=== PATIENT | female | born 1995 | race Two or more races ===

== ENCOUNTER 2023-01-27 14:32 | Inpatient (IN) | payer OTHER ==
[~2023-01-27] VITALS: Ht 157.5 cm; Wt 60.4 kg
[2023-01-27] MEDS ORDERED: ACETAMINOPHEN 325 MG TAB PO PRN (18:30)
[2023-01-27] MEDS ORDERED: MEDR150I23 IM (18:50)
[2023-01-27 18:54] VITALS: O2SAT 97
[2023-01-27] MEDS ORDERED: LORazepam 2MG/ML-1ML VIAL IV PRN (19:00)
[2023-01-27 19:10] LABS: Basophils # (auto) 0 10 ^3/uL (0-0.2); Basophils % (auto) 0.4 % (0.0-2.0); Eosinophils # (auto) 0.1 10 ^3/uL (0-0.8); Eosinophils % (auto) 0.7 % (0.0-7.0); Hematocrit 42.8 % (36.0-46.0); Lymphocytes # (auto) 2.9 10 ^3/uL (0.4-5.4); Lymphocytes % (auto) 32.8 % (10.0-50.0); Mean Corpuscular Hgb Conc. 32.8 g/dL (32.0-36.0); Mean Corpuscular Volume 88.5 fL (80.0-100.0); Monocytes # (auto) 0.4 10 ^3/uL (0-1.3); Neutrophils # (auto) 5.5 10 ^3/uL (1.6-8.6); Neutrophils % (auto) 62.1 % (37.0-80.0); Red Blood Cells 4.83 10^6/uL (4.0-5.20); White Blood Cell 8.9 10^3/uL (4.4-10.8)
[2023-01-27 19:26] LABS: INR 1.02 (0.9-1.15); Prothrombin Time 10.7 sec (9.3-11.8)
[2023-01-27 19:32] LABS: Alanine Aminotransferase 35 U/L (7-40); Albumin 4.7 g/dL (3.2-4.8); Alkaline Phosphatase 61 U/L (46-116); Anion Gap 9 (5-15); Aspartate Aminotransferase 12 U/L (13-40); BUN/Creatinine Ratio 13.6 (10.0-20.0); Bilirubin, Total 0.6 mg/dL (0.2-1.0); Blood Urea Nitrogen 8 mg/dL (9-23); Calcium 9.3 mg/dL (8.5-10.1); Carbon Dioxide 22 mmol/L (20-30); Chloride 108 mmol/L (98-107); Glucose 88 mg/dL (74-106); Potassium 3.8 mmol/L (3.5-5.1); Sodium 139 mmol/L (136-145); Total Protein 7.6 g/dL (5.7-8.2)
[2023-01-27 21:09] LABS: Urine Bacteria NONE SEEN /hpf (None Seen); Urine Blood 3+ /uL (Negative); Urine Clarity HAZY (Clear); Urine Color Yellow (Yellow); Urine Mucus FEW (None Seen); Urine Protein, UAD TRACE (Negative); Urine Specific Gravity 1.029 (1.001-1.035); Urine Urobilinogen Normal (Negative); Urine WBC 18 /hpf (0 - 5)
[2023-01-27 22:00] VITALS: BP 110/68; PULSE 72; RESP 16; TEMP 99; O2SAT 94
[2023-01-28] MEDS: SODIUM CHLORIDE 0.9% 1,000 ML IV SCH ×3 (04:13→20:45)
[2023-01-28 05:00] VITALS: BP 99/64; PULSE 78; RESP 18; TEMP 98.6; O2SAT 96
[2023-01-28 05:55] LABS: Basophils # (auto) 0.1 10 ^3/uL (0-0.2); Basophils % (auto) 0.7 % (0.0-2.0); Eosinophils # (auto) 0.1 10 ^3/uL (0-0.8); Eosinophils % (auto) 1.6 % (0.0-7.0); Hematocrit 39.8 % (36.0-46.0); Hemoglobin 13.3 g/dL (12.2-16.2); Lymphocytes # (auto) 3.7 10 ^3/uL (0.4-5.4); Mean Corpuscular Hemoglobin 29.4 pg (28.0-32.0); Mean Corpuscular Hgb Conc. 33.5 g/dL (32.0-36.0); Mean Corpuscular Volume 87.9 fL (80.0-100.0); Monocytes # (auto) 0.5 10 ^3/uL (0-1.3); Monocytes % (auto) 5.5 % (0.0-12.0); Neutrophils # (auto) 4.4 10 ^3/uL (1.6-8.6); Neutrophils % (auto) 50.2 % (37.0-80.0); Nucleated Red Blood Cells % 0.1 %; Red Blood Cells 4.53 10^6/uL (4.0-5.20); Red Cell Distribution Width 13.7 % (11.8-14.3); White Blood Cell 8.8 10^3/uL (4.4-10.8)
[2023-01-28 06:29] LABS: Alanine Aminotransferase 27 U/L (7-40); Alkaline Phosphatase 57 U/L (46-116); Anion Gap 9 (5-15); Calcium 8.8 mg/dL (8.7-10.4); Carbon Dioxide 22 mmol/L (20-30); Chloride 107 mmol/L (98-107); Glucose 86 mg/dL (74-106); Potassium 3.4 mmol/L (3.5-5.1); Sodium 138 mmol/L (136-145)
[2023-01-28 06:30] LABS: Blood Urea Nitrogen 6 mg/dL (9-23)
[2023-01-28 06:31] LABS: Aspartate Aminotransferase < 8 U/L (13-40)
[2023-01-28 06:32] LABS: Bilirubin, Total 0.8 mg/dL (0.2-1.0); Total Protein 6.7 g/dL (5.7-8.2)
[2023-01-28 08:00] VITALS: PULSE 67; RESP 18; O2SAT 97
[2023-01-28 08:41] VITALS: BP 114/69; PULSE 67; RESP 18; TEMP 98.7; O2SAT 97
[2023-01-28] MEDS ORDERED: POTASSIUM CHL 20 Meq TABLET PO ONE (09:00)
[2023-01-28] MEDS: cefTRIAXone 1GM/50ML D5W 50 ML IV SCH (09:35)
[2023-01-28 09:51] LABS: Erythrocyte Sedimentation Rate 5 mm/hr (0-20)
[2023-01-28 11:28] LABS: Folate (Folic Acid) 11.52 ng/mL (>5.38)
[2023-01-28] MEDS ORDERED: CYANOCOBALAMIN (B-12) 1000 MCG/1 ML VIAL IM ONE (12:15)
[2023-01-28] MEDS ORDERED: ERGOCALCIFEROL 50,000 UNIT(1.25MG) CAP PO SCH (12:15)
[2023-01-28 14:21] VITALS: BP 109/58; PULSE 83; RESP 18; TEMP 98.6; O2SAT 97
[2023-01-28] MEDS ORDERED: GADOTERATE MEG 10 MMOL/20ml INJ (0.5MMOL/ml) IV ONE (16:32)
[2023-01-28 16:40] VITALS: BP 130/79; PULSE 91; RESP 20; TEMP 98; O2SAT 96
[2023-01-28] MEDS ORDERED: LORazepam 2MG/ML-1ML VIAL IV PRN (19:00)
[2023-01-28] MEDS: methylPREDNISolone SOD SUCC 1,000 MG in SODIUM CHL 0.9% 250 ML IV SCH (20:42)
[2023-01-28 22:00] VITALS: BP 109/63; PULSE 76; RESP 18; TEMP 98.4; O2SAT 95
[2023-01-29 05:00] VITALS: BP 103/61; PULSE 70; RESP 18; TEMP 97.7; O2SAT 97
[2023-01-29 06:04] LABS: Basophils # (auto) 0 10 ^3/uL (0-0.2); Basophils % (auto) 0.1 % (0.0-2.0); Eosinophils # (auto) 0 10 ^3/uL (0-0.8); Hematocrit 43.5 % (36.0-46.0); Hemoglobin 14.3 g/dL (12.2-16.2); Lymphocytes % (auto) 12.4 % (10.0-50.0); Mean Corpuscular Hemoglobin 29.1 pg (28.0-32.0); Mean Corpuscular Hgb Conc. 32.8 g/dL (32.0-36.0); Mean Corpuscular Volume 88.5 fL (80.0-100.0); Monocytes # (auto) 0 10 ^3/uL (0-1.3); Monocytes % (auto) 0.5 % (0.0-12.0); Neutrophils # (auto) 7.1 10 ^3/uL (1.6-8.6); Red Blood Cells 4.91 10^6/uL (4.0-5.20); Red Cell Distribution Width 13.7 % (11.8-14.3); White Blood Cell 8.2 10^3/uL (4.4-10.8)
[2023-01-29 06:25] LABS: Anion Gap 10 (5-15); Carbon Dioxide 21 mmol/L (20-30); Chloride 108 mmol/L (98-107); Sodium 139 mmol/L (136-145)
[2023-01-29 06:31] LABS: Glucose 141 mg/dL (74-106)
[2023-01-29 06:32] LABS: BUN/Creatinine Ratio 14.7 (10.0-20.0); Blood Urea Nitrogen 10 mg/dL (9-23); Magnesium 2.1 mg/dL (1.6-2.6)
[2023-01-29 06:34] LABS: LDL Cholesterol 79 mg/dL (< 100); Phosphorus 3.7 mg/dL (2.4-5.1); Triglycerides 44 mg/dL (< 150)
[2023-01-29 06:35] LABS: Cholesterol 147 mg/dL (< 200); HDL Cholesterol 54 mg/dL (40-59)
[2023-01-29 08:00] VITALS: PULSE 68; RESP 17; O2SAT 98
[2023-01-29 09:00] VITALS: BP 108/69; PULSE 76; RESP 17; TEMP 98.3; O2SAT 96
[2023-01-29] MEDS: cefTRIAXone 1GM/50ML D5W 50 ML IV SCH (11:00)
[2023-01-29] MEDS: CYANOCOBALAMIN 500 MCG TAB PO SCH (11:00)
[2023-01-29] MEDS: SODIUM CHLORIDE 0.9% 1,000 ML IV SCH ×2 (11:00→12:13)
[2023-01-29] MEDS: FAMOTIDINE 20 MG TAB PO SCH (11:00)
[2023-01-29 13:00] VITALS: BP 103/54; PULSE 80; RESP 17; TEMP 98.5; O2SAT 94
[2023-01-29 16:44] VITALS: BP 121/75; PULSE 88; RESP 16; TEMP 98.3; O2SAT 97
[2023-01-29] MEDS: methylPREDNISolone SOD SUCC 1,000 MG in SODIUM CHL 0.9% 250 ML IV SCH (20:24)
[2023-01-29 22:00] VITALS: BP_SYST 119; PULSE 72; RESP 16; TEMP 98.4; O2SAT 97
[2023-01-29] MEDS ORDERED: TEMAZEPAM 15 MG CAP PO ONE (23:00)
[2023-01-30] VITALS (7 sets, daily range): BP systolic 108–122; BP diastolic 64–74; PULSE 68–79; RESP 16–20; TEMP 97.9–98.1; O2SAT 93–100
[2023-01-30] MEDS: SODIUM CHLORIDE 0.9% 1,000 ML IV SCH (02:26)
[2023-01-30 06:03] LABS: Basophils # (auto) 0 10 ^3/uL (0-0.2); Basophils % (auto) 0.1 % (0.0-2.0); Eosinophils # (auto) 0 10 ^3/uL (0-0.8); Hematocrit 40.5 % (36.0-46.0); Hemoglobin 13.2 g/dL (12.2-16.2); Lymphocytes # (auto) 1.1 10 ^3/uL (0.4-5.4); Lymphocytes % (auto) 8.9 % (10.0-50.0); Mean Corpuscular Hemoglobin 29.2 pg (28.0-32.0); Mean Corpuscular Hgb Conc. 32.6 g/dL (32.0-36.0); Mean Corpuscular Volume 89.5 fL (80.0-100.0); Monocytes # (auto) 0.1 10 ^3/uL (0-1.3); Monocytes % (auto) 0.5 % (0.0-12.0); Neutrophils # (auto) 11.2 10 ^3/uL (1.6-8.6); Neutrophils % (auto) 90.5 % (37.0-80.0); Red Blood Cells 4.52 10^6/uL (4.0-5.20); White Blood Cell 12.4 10^3/uL (4.4-10.8)
[2023-01-30 06:04] LABS: Alanine Aminotransferase 20 U/L (7-40); Alkaline Phosphatase 54 U/L (46-116); Anion Gap 9 (5-15); Aspartate Aminotransferase < 8 U/L (13-40); BUN/Creatinine Ratio 11.3 (10.0-20.0); Bilirubin, Total 0.4 mg/dL (0.2-1.0); Blood Urea Nitrogen 7 mg/dL (9-23); Calcium 8.8 mg/dL (8.7-10.4); Carbon Dioxide 21 mmol/L (20-30); Chloride 111 mmol/L (98-107); Glucose 163 mg/dL (74-106); Magnesium 1.9 mg/dL (1.6-2.6); Potassium 3.9 mmol/L (3.5-5.1); Sodium 141 mmol/L (136-145); Total Protein 6.7 g/dL (5.7-8.2)
[2023-01-30] MEDS: CYANOCOBALAMIN 500 MCG TAB PO SCH (09:02)
[2023-01-30] MEDS: cefTRIAXone 1GM/50ML D5W 50 ML IV SCH (09:02)
[2023-01-30] MEDS: FAMOTIDINE 20 MG TAB PO SCH (09:02)
[2023-01-30] MEDS: methylPREDNISolone SOD SUCC 1,000 MG in SODIUM CHL 0.9% 250 ML IV SCH (22:01)
[2023-01-31] MEDS: SODIUM CHLORIDE 0.9% 1,000 ML IV SCH (02:30)
[2023-01-31 05:00] VITALS: BP 107/63; PULSE 68; RESP 18; TEMP 98.2; O2SAT 100
[2023-01-31 06:24] LABS: Chloride 108 mmol/L (98-107); Potassium 3.9 mmol/L (3.5-5.1); Sodium 140 mmol/L (136-145)
[2023-01-31 06:25] LABS: Anion Gap 9 (5-15); Carbon Dioxide 23 mmol/L (20-30)
[2023-01-31 06:26] LABS: Calcium 8.9 mg/dL (8.7-10.4)
[2023-01-31 06:30] LABS: Glucose 151 mg/dL (74-106)
[2023-01-31 06:31] LABS: BUN/Creatinine Ratio 8.1 (10.0-20.0); Blood Urea Nitrogen 5 mg/dL (9-23)
[2023-01-31 07:09] LABS: Basophils # (auto) 0 10 ^3/uL (0-0.2); Basophils % (auto) 0.4 % (0.0-2.0); Eosinophils # (auto) 0 10 ^3/uL (0-0.8); Hematocrit 40.6 % (36.0-46.0); Hemoglobin 13.5 g/dL (12.2-16.2); Lymphocytes # (auto) 1.1 10 ^3/uL (0.4-5.4); Lymphocytes % (auto) 10.3 % (10.0-50.0); Mean Corpuscular Hemoglobin 29.3 pg (28.0-32.0); Mean Corpuscular Hgb Conc. 33.2 g/dL (32.0-36.0); Mean Corpuscular Volume 88.2 fL (80.0-100.0); Monocytes # (auto) 0.2 10 ^3/uL (0-1.3); Monocytes % (auto) 1.5 % (0.0-12.0); Neutrophils % (auto) 87.8 % (37.0-80.0); Nucleated Red Blood Cells % 0.1 %; Red Blood Cells 4.61 10^6/uL (4.0-5.20); Red Cell Distribution Width 14.2 % (11.8-14.3); White Blood Cell 10.3 10^3/uL (4.4-10.8)
[2023-01-31 08:00] VITALS: PULSE 72; RESP 18; O2SAT 98
[2023-01-31 09:00] VITALS: BP 125/74; PULSE 75; RESP 15; TEMP 97.8; O2SAT 96
[2023-01-31] MEDS: cefTRIAXone 1GM/50ML D5W 50 ML IV SCH (09:25)
[2023-01-31] MEDS: CYANOCOBALAMIN 500 MCG TAB PO SCH (09:35)
[2023-01-31] MEDS: FAMOTIDINE 20 MG TAB PO SCH (09:35)
[2023-01-31 17:00] VITALS: BP 115/72; PULSE 54; RESP 16; TEMP 98.4; O2SAT 98
[2023-01-31 19:06] LABS: Antimyeloperoxidase (MPO) Ab <0.2 units (0.0-0.9); Antiproteinase 3 (PR-3) Ab 0.2 units (0.0-0.9)
[2023-01-31 22:00] VITALS: BP 116/75; PULSE 68; RESP 20; TEMP 98.3; O2SAT 95
[2023-01-31] MEDS: methylPREDNISolone SOD SUCC 1,000 MG in SODIUM CHL 0.9% 250 ML IV SCH (22:14)
[2023-02-01] VITALS (7 sets, daily range): BP systolic 113–124; BP diastolic 59–74; PULSE 55–72; RESP 14–20; TEMP 97.9–98.5; O2SAT 93–98
[2023-02-01] MEDS: SODIUM CHLORIDE 0.9% 1,000 ML IV SCH ×2 (04:59→18:30)
[2023-02-01 06:13] LABS: Basophils # (auto) 0 10 ^3/uL (0-0.2); Eosinophils # (auto) 0 10 ^3/uL (0-0.8); Hematocrit 42.1 % (36.0-46.0); Hemoglobin 13.9 g/dL (12.2-16.2); Lymphocytes # (auto) 1.1 10 ^3/uL (0.4-5.4); Mean Corpuscular Volume 87.9 fL (80.0-100.0); Monocytes # (auto) 0.1 10 ^3/uL (0-1.3); Monocytes % (auto) 0.9 % (0.0-12.0); Neutrophils # (auto) 8.8 10 ^3/uL (1.6-8.6); Neutrophils % (auto) 88.1 % (37.0-80.0); Red Blood Cells 4.78 10^6/uL (4.0-5.20); Red Cell Distribution Width 14.1 % (11.8-14.3)
[2023-02-01 06:15] LABS: Chloride 107 mmol/L (98-107); Potassium 3.7 mmol/L (3.5-5.1); Sodium 140 mmol/L (136-145)
[2023-02-01 06:16] LABS: Anion Gap 8 (5-15); Calcium 8.8 mg/dL (8.5-10.1); Carbon Dioxide 25 mmol/L (20-30)
[2023-02-01 06:21] LABS: BUN/Creatinine Ratio 9.5 (10.0-20.0); Blood Urea Nitrogen 6 mg/dL (9-23); Glucose 166 mg/dL (74-106)
[2023-02-01] MEDS: CYANOCOBALAMIN 500 MCG TAB PO SCH (10:00)
[2023-02-01] MEDS: FAMOTIDINE 20 MG TAB PO SCH (10:25)
[2023-02-01 13:07] LABS: Cytoplasmic (C-ANCA) <1:20 titer (Neg:<1:20); Perinuclear (P-ANCA) <1:20 titer (Neg:<1:20)
[2023-02-01] MEDS: methylPREDNISolone SOD SUCC 1,000 MG in SODIUM CHL 0.9% 250 ML IV SCH (21:21)
[2023-02-02 05:00] VITALS: BP 114/73; PULSE 59; RESP 18; TEMP 98.2; O2SAT 95
[2023-02-02] MEDS: SODIUM CHLORIDE 0.9% 1,000 ML IV SCH (07:50)
[2023-02-02 09:00] VITALS: BP 127/75; PULSE 85; RESP 14; TEMP 98.4; O2SAT 96
[2023-02-02] MEDS: FAMOTIDINE 20 MG TAB PO SCH (10:00)
[2023-02-02] MEDS: CYANOCOBALAMIN 500 MCG TAB PO SCH (10:00)
[2023-02-02 11:19] VITALS: BP 127/75; PULSE 85; RESP 14; TEMP 98.4; O2SAT 96
== END 2023-02-02 11:40 | disposition home or self-care (01) | DRG 59 ==
LOC: EAST 17:42
PROVIDERS: ADMIT Internal Medicine
DX: G35 Multiple sclerosis (principal); H46.9 Unspecified optic neuritis; N39.0 Urinary tract infection, site not specified; Z82.49 Family history of ischemic heart disease and other diseases of the circulatory system; H53.8 Other visual disturbances; E87.6 Hypokalemia; E53.8 Deficiency of other specified B group vitamins; E55.9 Vitamin D deficiency, unspecified
CPT/HCPCS: 36415; 70450; 70542; 70553; 71045; 72141; 72146; 80048; 80053; 80061; 81001; 81025; 82306; 82607; 82746; 83036; 83520; 83615; 83735; 84100; 84443; 85025; 85610; 85652; 86141; 86256; 87086; G0378; J0696